=== PATIENT | male | born 1960 | race Caucasian/White ===

== ENCOUNTER 2020-10-09 05:03 | Observation (INO) ==
--- NOTE | 2020-09-12 14:23 | PAT Medication Instructions ---
Medication Instructions Date of Service September 12, 2020 Home Medications Medication Instructions Recorded Wheelrticia Walker #1 ea 09/08/20 naproxen sodium [Aleve] 440 mg PO Q8H PRN ASK your surgeon for instructions naproxen sodium [Aleve] 440 mg PO Q8H PRN OTHERWISE NOTHING TO EAT OR DRINK AFTER MIDNIGHT Other Notes If you have any questions please call us at [phone] or [phone] or [phone] or [phone]
--- NOTE | 2020-09-15 09:15 | Anesthesiology Consultation ---
Date of Service September 15, 2020 Assessment & Plan (1) Encounter for pre-operative examination: COVID Status: As of 09/15 assessment, patient denies travel to endemic area, known exposure/sick contacts, or symptoms of COVID19. Patient instructed that they and their household members must follow strict social distancing guidelines, wear a mask in public and avoid travel/events/gatherings for 14 days prior to surgery. Preoperative COVID19 testing to be completed prior to surgery per surgeon's arrangements. Patient made aware to self-isolate as much as possible between COVID testing and surgery. Chart Review Chart Review: Acceptable Risk for Surgery and Patient seen in Pre Admission Testing Teaching & Discussion Instructed NPO after midnight before surgery, except medications with 15 cc of water. Medication instructions provided according to the PAT guidelines. History Surgery Operation Date: 10/09/20 08:15 Proposed Procedures p Left Total Knee Replacement - Sean Palmer MD Height/Weight Height: 5 ft 11 in Weight: 101.7 kg Allergies Allergy/AdvReac Type Severity Reaction Status Date / Time No Known Allergies Allergy Verified 09/10/20 09:39 Medications Home Medications Medication Instructions Recorded Confirmed Last Taken Wheeled Walker #1 ea 09/08/20 09/08/20 Unknown naproxen sodium [Aleve] 440 mg PO Q8H PRN 09/10/20 09/10/20 Unknown Past Medical History Medical History Arthritis Hyperlipidemia NO MEDS Hypertension NO MEDS Exercise / Class Metabolic Activity II 4-5 Yardwork/Stairs/Walk up hill (Denies CP with 1 FOS, very mildly SOB, does stairs at home) Past Family History Family History Family/Other Family history of diabetes mellitus COUSIN Past Surgical History Surgical History History of hand surgery GANGLION-BLOCK ANESTHESIA, WAS NOT SEDATED Past Anesthesia History No Hx of Anesthesia Complications and No Family Hx of Anesthesia Complications History of PONV No Hx of PONV and No Hx of Motion Sickness Social History Smoking Status: Current every day smoker Smoking cigarettes per day: 10 CIGS A DAY Do You Dip or Chew Tobacco: No Hx Alcohol Use: No Hx Substance Use: No Review of Systems Pt denies any recent chest pain, shortness of breath, palpitations, cough, fever, URI, or uncontrolled acid reflux. Physical Exam Vital Signs BP: 143/74 P: 71bpm SPO2: 98% RA T: 98.5 F R: 16 ENMT Mouth: no dental restorations, no chipped teeth and no loose teeth Thyromental Distance: > or= 3.5 Finger Breadths Mallampati Class: II Neck + short neck and + facial hair (short goatee); neck extension not limited Respiratory normal respiratory effort, lungs clear to auscultation + prolonged expiratory phase Cardiovascular RRR, no murmur, no edema Vessels: no carotid bruit Testing Laboratory Results 09/15/20 09:28 09/15/20 09:28 PT 10.7 Seconds (9.0-12.0) 09/15/20 09: INR 1.0 (0.9-1.1) 09/15/20 09:28 APTT 28.4 Seconds (21.0-31.0) 09/15/20 09:28 Blood Type A Positive 09/15/20 09:28 Antibody Screen NEGATIVE 09/15/20 09:28 Electrocardiogram Date: 09/15/20 Sinus rhythm at 73 bpm with occasional PVCs. Chest X-Ray Date: 09/15/20 Findings: + NAD
--- NOTE | 2020-09-15 10:06 | XRay Report ---
XR chest Pre-admission PA/Lat HISTORY: 60 years-old Male pat preoperative exam. No acute chest complaints COMPARISON: None TECHNIQUE: PA and lateral views of the chest FINDINGS: Cardiomediastinal and hilar silhouettes are within normal limits. There is no pneumothorax, pleural e ffusion, airspace consolidation or overt pulmonary edema. Bones of the chest appear grossly intact. D egenerative changes of the shoulders and spine. IMPRESSION: No acute process. ACT 112: Negative or not required by law. The above report was generated using voice recognition software. It may contain grammatical, syntax o r spelling errors. Electronically signed by: Sam Chavez M.D. 09/15/2020 10:04 AM
--- NOTE | 2020-09-15 10:24 | Electrocardiogram Report ---
Test Reason : Blood Pressure : / mmHG Vent. Rate : 073 BPM Atrial Rate : 073 BPM P-R Int : 158 ms QRS Dur : 108 ms QT Int : 392 ms P-R-T Axes : 058 -17 060 degrees QTc Int : 431 ms Sinus rhythm with occasional Premature ventricular complexes Otherwise normal ECG No previous ECGs available Confirmed by Roly Vargas ([id number]) on 09/15/2020 10:23:48 AM Referred By: Sena Palmer Confirmed By:Roly Vargas
[2020-09-15 11:09] LABS: Basophils # (auto) 0.02 K/uL (0-0.2); Basophils % (auto) 0.3 %; Eosinophils # (auto) 0.16 K/uL (0-0.5); Eosinophils % (auto) 2.2 %; Hematocrit (blood only) 47.5 % (42-52); Hemoglobin 16.6 g/dL (14.0-18.0); Immature Granulocytes # (auto) 0.02 K/uL (0.00-0.02); Immature Granulocytes % (auto) 0.3 %; Lymphocytes # (auto) 2.11 K/uL (1.2-3.4); Lymphocytes % (auto) 28.9 %; Mean Corpuscular Hemoglobin 31.7 pg (25-34); Mean Corpuscular Hgb Conc 34.9 g/dL (32-36); Mean Corpuscular Volume 90.6 fL (80-100); Mean Platelet Volume 11.1 fL (7.4-10.4); Monocytes # (auto) 0.49 K/uL (0.11-0.59); Monocytes % (auto) 6.7 %; Neutrophils % (auto) 61.6 %; Platelet Count 154 K/uL (130-400); RDW Coefficient of Variation 12.4 % (11.5-14.5); RDW Standard Deviation 41.3 fL (36.4-46.3); Red Blood Count 5.24 M/uL (4.7-6.1)
[2020-09-15 11:16] LABS: BUN Creatinine Ratio 10.6 (10-20); Calcium 8.8 mg/dl (8.5-10.1); Creatinine Clr Calc Pharmacy 103.5 ml/min; Est GFR (African American) 105.1; Est GFR (Non-African American) 90.6; Potassium 3.9 mmol/L (3.5-5.1)
[2020-09-15 11:26] LABS: Partial Thromboplastin Time 28.4 Seconds (21.0-31.0); Prothrombin Time 10.7 Seconds (9.0-12.0)
--- NOTE | 2020-10-02 13:07 | History and Physical Report ---
DATE OF ADMISSION: 10/09/2020 CHIEF COMPLAINT: Left knee pain and discomfort. HISTORY OF PRESENT ILLNESS: A 60-year-old fairly active gentleman who presents with a several year history of gradually progressive increased left knee pain and discomfort. He saw Dr. Colbert over in [place] and had a shot in his knee, which helped him for about 6 weeks. The pain has returned. He has a limited walking tolerance due to the pain. It is mostly medial, but some lateral pain. It swells more as the day goes on. He limps more as the day goes on. He has difficulty going up and down steps. He has been through some physical therapy with no improvement. He would like to have his knee fixed. Of note, the patient does have a history of a knee injury when he was in high school consistent with a likely ACL tear. PAST MEDICAL HISTORY: Significant for sleep apnea. PREVIOUS SURGERIES: None. ALLERGIES: None. CURRENT MEDICATIONS: Include various anti-inflammatory medicines. SOCIAL HISTORY: Significant for a 60-year-old male. He is from [place]. 30-[id number]-bgly history of smoking. No alcohol intake. He lives with his son and daughter. FAMILY HISTORY: Noncontributory. REVIEW OF SYSTEMS: Negative for diabetes, neurologic problem, vascular problem, bleeding disorders. Denies any chest pain or shortness of breath. No history of DVT or PE. No known bleeding problems. PHYSICAL EXAMINATION: GENERAL: Shows a pleasant, middle-aged male, looks to be in good health. HEENT: Benign. NECK: Supple, no lymphadenopathy. LUNGS: Clear to auscultation. HEART: Has a regular rate and rhythm. ABDOMEN: Soft, nontender, nondistended. EXTREMITIES: Grossly neurovascularly intact except as follows: Examination of the left knee reveals the patient ambulates with varus alignment to his knee. He does have a bit of a varus thrust with weightbearing. Small knee effusion. He is tender over the medial joint line. Range of motion 5-125. He has got a soft endpoint to his Maria Dolores. No obvious pivot. No pain with hip motion. X-RAYS: X-rays of the left knee were reviewed. It shows advanced left knee medial compartment DJD. He has got near complete loss of his joint space. He has got subchondral sclerosis. He has got osteophytes off the medial femoral condyle and medial tibial plateau. There is a small segment of avascular necrosis as well. ASSESSMENT: A 60-year-old male with a history of a left knee injury and likely anterior cruciate ligament tear in high school with a progressive knee pain consistent with advanced medial compartment arthritis. He has failed conservative treatment and would like to have his left knee replaced. He is not a good candidate for partial knee replacement due to his anterior cruciate ligament deficiency. PLAN: We are going to proceed with left knee replacement. The risks and benefits of this procedure were explained to the patient including but not limited to DVT, PE, , infection, neurological injury, vascular injury, bleeding problem, pain, limited range of motion, stiffness, failure to relieve his symptoms, incomplete relief of symptoms, need for further surgery in the future, fracture, leg length inequality, nerve palsy, etc. The patient understands and desires to proceed. Informed consent was obtained. As far as discharge plans, he is planning to be discharged to home with [facility]. He lives with his son and daughter who can assist in his care. We will likely need to put a patch on him in the hospital due to his smoking history.
[2020-10-09] MEDS ORDERED: LR 60ML/HR IV SCH (06:00)
[2020-10-09] MEDS ORDERED: BUPIVACAINE LIPOSOME/PF 266 MG, BUPIVACAINE/EPINEPHRINE 50 ML, SODIUM CHLORIDE 0.9% 30 ... INFIL SCH (06:00)
[2020-10-09] MEDS ORDERED: METOCLOPRAMIDE HCL 10 MG TABLET PO SCH (06:00)
[2020-10-09] MEDS ORDERED: ceFAZolin 2000MG 2,000 MG/15 ML SYR IV SCH (06:00)
[2020-10-09] MEDS ORDERED: LR 500ML BOLUS, THEN 15ML/HR IV SCH (06:00)
[2020-10-09] MEDS ORDERED: TRANEXAMIC ACID 1,000 MG **IV Intra-op IV SCH (06:00)
[2020-10-09] MEDS ORDERED: ACETAMINOPHEN 500 MG TAB PO SCH (06:00)
[2020-10-09] MEDS ORDERED: GABAPENTIN 600 MG DOSE PO SCH (06:00)
[2020-10-09] MEDS ORDERED: FAMOTIDINE 20 MG TAB PO SCH (06:00)
[2020-10-09] MEDS ORDERED: TRANEXAMIC ACID 1,000 MG **IV Pre-op IV SCH (06:00)
[2020-10-09] MEDS ORDERED: BUPIVACAINE 0.5 % 5 MG/1 ML PF 10ML VIAL ONE (06:35)
--- NOTE | 2020-10-09 07:00 | History & Physical Bridge Note ---
Date of Service October 09, 2020 History & Physical Bridge Note I have examined the patient, reviewed the History & Physical and in the interval since the performance of the History & Physical I have noted the following changes of clinical significance: no changes noted
[2020-10-09] MEDS ORDERED: LIDOCAINE HCL 2% 2 ML VIAL/AMP(20MG/ML) INFIL ONE (07:03)
[2020-10-09] MEDS ORDERED: MIDAZOLAM HCL 1 MG/ML 2ML VIAL ONE (07:03)
[2020-10-09] MEDS ORDERED: fentaNYL citrate 100 MCG/2 ML VIAL ONE (07:03)
[2020-10-09] MEDS ORDERED: PROPOFOL IV EMULSION 10 MG/ML 20 ML VIAL IV ONE (07:03)
[2020-10-09] MEDS ORDERED: fentaNYL citrate 100 MCG/2 ML VIAL IV PRN (07:07)
[2020-10-09] MEDS ORDERED: ePHEDrine sulfate 50 MG/ML AMP IV PRN (07:07)
[2020-10-09] MEDS ORDERED: ATROPINE SULFATE 0.1 MG/ML 10ML SYR IV PRN (07:07)
[2020-10-09] MEDS ORDERED: ONDANSETRON INJ 2 MG/ML 2 ML VIAL IV PRN ×2 (07:07→10:13)
[2020-10-09] MEDS ORDERED: SODIUM CHLORIDE 0.9% PF 50 ML VIAL ONE (07:12)
[2020-10-09] MEDS ORDERED: BUPIVACAINE LIPOSOME 1.3% 266 MG/20 ML VIAL ONE (07:12)
[2020-10-09] MEDS ORDERED: BACITRACIN INJ 50,000 UNIT VIAL ONE (07:12)
[2020-10-09] MEDS ORDERED: BUPIVACAINE 0.25% 30 ML VIAL ONE (07:12)
[2020-10-09] MEDS ORDERED: EPINEPHrine INJ 1 MG/ML AMP ONE (07:13)
[2020-10-09] MEDS ORDERED: ONDANSETRON INJ 2 MG/ML 2 ML VIAL ONE (07:52)
[2020-10-09] MEDS ORDERED: DEXAMETHASONE SOD INJ 4 MG/ML VIAL ONE (07:52)
--- NOTE | 2020-10-09 09:09 | Post Operative Brief Note ---
PG Immediate Post Op with CF Date of Surgery October 09, 2020 Pre & Post Diagnosis Operation Date: 10/09/20 07:30 Pre-Op Diagnosis: Left Knee Advanced Degenerative Joint Disease Post-Op Diagnosis: Left Knee Advanced Degenerative Joint Disease I identified the patient and participated in the time-out.: Yes Procedure Operation Date: 10/09/20 07:30 Actual Procedures p Left Total Knee Arthroplasty(Left) - Sean Palmer MD Surgeon Sean Palmer MD Senior Industrial Engineer ASA Jackson Estimated Blood Loss 50 Findings Consistent with Post-Op Diagnosis Fluids 1200 cc Specimens Specimen Description: A. Left Knee Bone and Tissue Drains Tomlinson Catheter Anesthesia Type Spinal MAC Complications none Disposition Accompanied Patient To Recovery: No Disposition: Recovery Room
--- NOTE | 2020-10-09 09:23 | Operative Report ---
Post Operative Report Pre & Post Diagnosis Operation Date: 10/09/20 07:30 Pre-Op Diagnosis: Left Knee Advanced Degenerative Joint Disease Post-Op Diagnosis: Left Knee Advanced Degenerative Joint Disease I identified the patient and participated in the time-out.: Yes Procedure Operation Date: 10/09/20 07:30 Actual Procedures p Left Total Knee Arthroplasty(Left) - Sean Palmer MD Surgeon Sean Palmer MD Instructor Of Nursing ASA Jackson Estimated Blood Loss 50 Findings Consistent with Post-Op Diagnosis Fluids 1200 cc. Specimens Left knee sent for pathology. Anesthesia Type Spinal MAC Complications none Disposition Accompanied Patient To Recovery: No Disposition: Recovery Room Indications Patient is a 60-year-old gentleman is had a long history of a left knee problems and pain and discomfort. She has been through extensive conservative treatment primarily provided [place]. Provide some temporary relief only. He is symptoms localized to his knee joint. He was having difficulty maintaining any degree of active lifestyle. X-rays show medial compartment DJD. He elected proceed with surgical treatment. Description of Procedure Operative implants consist of: 1. Biomet Vanguard size 70 left posterior stabilized femoral component. 2. Biomet size 75 tibial tray. 3. 10 mm posterior stabilized polyethylene insert. 4. 31 x 8 all polypatella. The patient was taken to the operating identified and placed on the operating table supine position but all contact areas were properly padded. IV antibiotics tried by anesthesia team. Spinal anesthetic and abductor canal block had been provided in the holding area. A Tomlinson catheter was placed in sterile fashion for the left thigh turn was then placed in the left lower extremities and prepped draped in usual sterile fashion. The left leg was elevated exsanguinated with use of an Esmarch and turns placed at 300 mmHg. An anterior approach of the left knee was then performed to longitudinal incision centered over the patella. Sharp dissection got through subcutaneous tissue down the extensor mechanism. Medial parapatellar arthrotomy incision was made. Some subperiosteal dissection was carried out medially. The fat pad was dissected from each patella tendon. Lateral patellofemoral ligament was released. Patella was subluxated laterally and the knee was flexed. The osteophytes were taken off the distal femur. The ACL and PCL were then released from the distal femur and the tibia subluxated anteriorly. The external tibial alignment jig was then placed in the interface the tibia and adjusted 14 mm medially. Proximal tibial cut was made to move out a millimeter or 2 of bone from most efficient aspect medial till plateau. Some osteophytes taken off medial and posterior medially. Tibia sized to a size 79. Attention drawn the femur. The distal femur stem with a sharp drop with intramedullary canal was suction. A left 6 degree valgus cutting guide was placed but distal femoral cutting block was pinned in place. Distal femoral cut was made to take an additional 3 mm of bone off distal femur. The femur was then sized to a size 70. We did downsize this slightly. The AP cutting block was pinned parallel to the epicondylar axis which was 6 degrees of external rotation. The anterior cut, anterior chamfer, p osterior cut, posterior chamfer cuts were made. Box cutting guide was placed in just slight lateral box cut was made. The knee was flexed. The remnants of the medial lateral menisci were excised. The osteophytes were taken off the posterior aspect the femur. A trial femoral component was placed. The tibial tray was pinned in maximum external rotation and the drill and stem punch were used to create defect in proximal to for the tibial tray. The knee was then trialed the 10 mm insert fit most appropriately. Attention drawn the patella. The patella was cleaned of all soft tissues. Patella thickness measured 24 mm in thickness and cut down to 14. Was sized to a size 31 patella. Locals were drilled for 31 patella. The lateral osteophyte is moved. Patella button was placed. Knee was taken through range of motion and the patella tracked nicely with no thumbs test. Attention drawn to placing the permanent components. All trial components were removed. A bone plug was placed in the distal femur limit blood loss put a double batch [place] G cement was mixed. A Biomet Vanguard size 70 left posterior stabilized femoral component, size 79 tibial tray, 10 mm posterior bite polyethylene insert, and a 31 x 8 all polypatella then cemented in place. Knee was brought out to full extension total cement hardened. Final cement check was then performed. The pericapsular tissues were injected with total 100 cc of combination of 20 of Exparel, 30 cc normal saline, 50 cc of quarter percent Marcaine with epinephrine. Patient did receive 1 g tranexamic acid. The tourniquet was then let down for final turn time 56 minutes. Hemostasis assured use electrocautery. The wound was then once again irrigated. The extensor mechanism closed with combination 1 PDS suture #1 Vicryl suture in [id number] fashion for the extensor mechanism checked found to be intact with subcutaneous tissue then closed with 2 Dexon suture in a buried interrupted fashion skin was closed skin ranulfo. Leg was then cleaned dried a sterile dressed composed Xeroform, 4 x 4's, sterile cast padding, Michael bandage were applied. Patient then transferred to the recovery room in stable condition. Patient tolerated procedure well and there were no complications. Stevie Jackson, my physician orthopaedic physician assistant, was present for the entire procedure. His assistance was essential and required for appropriate patient positioning, prepping and draping, surgical exposure, performing the technical details of the operation, placement the implants, closure of the wound, and placement of the sterile bandage. I attest to the content of the Intraoperative Record and any orders documented therein. Any exceptions are noted below.
--- NOTE | 2020-10-09 09:33 | XRay Report ---
LEFT KNEE 2 VIEWS History: Left total knee arthroplasty. Degenerative arthritis. Postop. FINDINGS: The patient is status post a left total knee arthroplasty. The hardware is intact. No fract ure or dislocation. Skin ranulfo are in place. IMPRESSION: Left total knee arthroplasty. No evidence for hardware complication. ACT 112: Negative or not required by law. Electronically signed by: Merrill Snyder M.D. 10/09/2020 9:31 AM
--- NOTE | 2020-10-09 09:44 | Anesthesiology Progress Note ---
Date of Service October 09, 2020 Anesthesia Post Procedure Vital Signs Vital Signs: Temp Pulse Pulse Resp BP BP Pulse Ox 10/09/20 09:30 72 19 112/63 95 10/09/20 09:20 80 14 108/64 94 10/09/20 09:13 98.2 F 83 14 129/71 96 10/09/20 05:20 98.1 F 82 18 151/81 H 97 Transfer of Care Handoff Completed per policy Notes Mental Status: alert / awake / arousable and participated in evaluation Patient Amnestic to Procedure: Yes Nausea / Vomiting: adequately controlled Pain: adequately controlled Airway Patency, RR, SpO2: stable & adequate BP & HR: stable & adequate Hydration State: stable & adequate Neuraxial Anesthesia: was administered and sensory block is resolving Anesthetic Complications: no major complications apparent and Pt Satisfied with anesthetic care
[2020-10-09] MEDS ORDERED: TAMSULOSIN HCL 0.4 MG CAP PO PRN (10:13)
[2020-10-09] MEDS ORDERED: diphenhydrAMINE Capsule 25 MG CAP PO PRN (10:13)
[2020-10-09] MEDS ORDERED: ALUMINUM/MAGNESIUM SUSP 30 ML UDC PO PRN (10:13)
[2020-10-09] MEDS ORDERED: METOCLOPRAMIDE HCL INJ 5 MG/ML 2 ML VIAL IV PRN (10:13)
[2020-10-09] MEDS ORDERED: HYDROmorphone INJ 0.5 MG/0.5 ML SYR IV PRN (10:13)
[2020-10-09] MEDS ORDERED: bisacodyL 10 MG SUPP PR PRN (10:13)
[2020-10-09] MEDS ORDERED: MAGNESIUM HYDROXIDE SUSP 30 ML UDC PO PRN (10:13)
[2020-10-09] MEDS ORDERED: oxyCODONE HCL IR 5 MG TAB (IMMEDIATE RELEASE) PO PRN (10:13)
[2020-10-09] MEDS ORDERED: NALOXONE HCL 0.4 MG/1 ML VIAL/CARP IV PRN (10:13)
[2020-10-09] MEDS: SODIUM CHLORIDE 0.9% 1000ML 1,000 ML IV SCH ×2 (10:26→20:03)
[2020-10-09] MEDS: KETOROLAC 30 MG/ML VIAL IV SCH ×3 (11:07→23:55)
[2020-10-09] MEDS: ACETAMINOPHEN 500 MG TAB PO SCH ×2 (12:50→21:24)
[2020-10-09] MEDS ORDERED: TRANEXAMIC ACID / 0.7% NACL 1,000 MG/100 ML BAG IV SCH (16:00)
[2020-10-09] MEDS: Scopolamine CHECK PATCH PLACEMENT SCH ×2 (16:53→23:56)
[2020-10-09] MEDS: ceFAZolin 2000MG 2,000 MG/15 ML SYR IV SCH ×2 (17:26→23:56)
[2020-10-09] MEDS: ASCORBIC ACID 500 MG TAB PO SCH (17:27)
[2020-10-09] MEDS: FERROUS GLUCONATE 324 MG TAB PO SCH (17:27)
--- NOTE | 2020-10-09 18:05 | Progress Notes ---
DATE: 10/09/2020 SUBJECTIVE: A 60-year-old gentleman postop from a left knee replacement. He is doing well. Not really having any pain yet. Just starting to be able to wiggle his toes. No chest pain or shortness of breath. Not feeling dizzy or lightheaded. OBJECTIVE: VITAL SIGNS: Temperature 37.1. Vital signs stable. GENERAL: Shows a pleasant, middle-aged male. He is sitting up in bed, looks pretty comfortable. LUNGS: Clear to auscultation. HEART: Regular rate and rhythm. ABDOMEN: Soft, nontender, nondistended. EXTREMITIES: Grossly neurovascularly intact except as follows: Examination of the left leg reveals the leg to be well aligned. He is able to just slightly bend his toes. His extension is a bit weak as well. He does have brisk refill with good distal pulse. X-RAYS: X-rays of the left knee from recovery room are reviewed. It shows a cemented posterior stabilized total knee arthroplasty. Components looked to be in good position. No signs of problems. ASSESSMENT: A 60-year-old gentleman postoperative from a left knee replacement, doing pretty well. It appears the block is still in effect. It is just wearing off. PLAN: 1. DVT prophylaxis including thigh-high TEDs, SCDs, and aspirin twice a day. 2. PT/OT. Weight bear as tolerated. Left total knee protocol. 3. Pain control. We will have to adjust his pain medicine as the block wears off. 4. Disposition: He is planning to be discharged to home with some home health and his family's assistance once medically stable.
[2020-10-09] MEDS: DOCUSATE SODIUM 100 MG CAP PO SCH (20:04)
[2020-10-09] MEDS: ASPIRIN 81 MG ECTAB PO SCH (20:04)
[2020-10-09] MEDS: TAPENTADOL HCL ER 50 MG TABCR PO SCH (20:05)
[2020-10-09] MEDS ORDERED: SENNA 8.6 MG TAB PO SCH (21:00)
[2020-10-10] MEDS: KETOROLAC 30 MG/ML VIAL IV SCH (05:44)
[2020-10-10] MEDS: ACETAMINOPHEN 500 MG TAB PO SCH (05:45)
[2020-10-10 06:10] LABS: Hematocrit (blood only) 37.6 % (42-52); Mean Corpuscular Hemoglobin 31.3 pg (25-34); Mean Corpuscular Hgb Conc 34.6 g/dL (32-36); Mean Corpuscular Volume 90.4 fL (80-100); Mean Platelet Volume 11.4 fL (7.4-10.4); Platelet Count 137 K/uL (130-400); RDW Coefficient of Variation 12.4 % (11.5-14.5); Red Blood Count 4.16 M/uL (4.7-6.1); White Blood Count 11.64 K/uL (4.8-10.8)
[2020-10-10 06:39] LABS: Calcium 8.1 mg/dl (8.5-10.1); Creatinine Clr Calc Pharmacy 109.3 ml/min; Est GFR (African American) 110.6; Est GFR (Non-African American) 95.4; Potassium 3.7 mmol/L (3.5-5.1)
[2020-10-10] MEDS: SODIUM CHLORIDE 0.9% 1000ML 1,000 ML IV SCH (07:07)
[2020-10-10] MEDS ORDERED: dexAMETHasone 4 MG TAB PO SCH (08:00)
[2020-10-10] MEDS: ASCORBIC ACID 500 MG TAB PO SCH (08:01)
[2020-10-10] MEDS: ASPIRIN 81 MG ECTAB PO SCH (08:01)
[2020-10-10] MEDS: TAPENTADOL HCL ER 50 MG TABCR PO SCH (08:01)
[2020-10-10] MEDS: DOCUSATE SODIUM 100 MG CAP PO SCH (08:01)
[2020-10-10] MEDS: Scopolamine CHECK PATCH PLACEMENT SCH (08:02)
[2020-10-10] MEDS: FERROUS GLUCONATE 324 MG TAB PO SCH (08:02)
[2020-10-10] MEDS ORDERED: MULTIVITAMIN TAB PO SCH (09:00)
[2020-10-10] MEDS ORDERED: NICOTINE 14 MG/24 HR PATCH TD SCH (09:00)
--- NOTE | 2020-10-10 09:06 | Anesthesiology Progress Note ---
Date of Service October 10, 2020 Anesthesia Post Procedure Vital Signs Vital Signs: Temp Pulse Pulse Resp BP BP Pulse Ox 10/10/20 07:24 36.6 C 69 18 122/67 96 10/10/20 03:26 36.7 C 87 16 136/74 94 10/09/20 23:41 36.8 C 78 16 126/69 97 10/09/20 19:03 37.3 C 66 16 114/68 92 10/09/20 15:19 37.1 C 82 16 128/66 94 10/09/20 12:45 36.7 C 80 18 123/73 94 10/09/20 12:06 37 C 85 18 123/72 97 10/09/20 10:59 37.1 C 75 18 134/72 96 10/09/20 10:30 73 18 128/66 95 10/09/20 10:00 36.7 C 81 18 125/76 95 10/09/20 09:50 84 19 115/67 96 10/09/20 09:40 36.7 C 79 15 122/57 L 94 10/09/20 09:30 72 19 112/63 95 10/09/20 09:20 80 14 108/64 94 10/09/20 09:13 36.8 C 83 14 129/71 96 Pain Intensity Left Leg: Pain Intensity: 0 Transfer of Care Handoff Completed per policy Notes Mental Status: alert / awake / arousable Patient Amnestic to Procedure: Yes Nausea / Vomiting: adequately controlled Pain: adequately controlled Airway Patency, RR, SpO2: stable & adequate BP & HR: stable & adequate Hydration State: stable & adequate Neuraxial Anesthesia: was administered Anesthetic Complications: no major complications apparent and Pt Satisfied with anesthetic care
--- NOTE | 2020-10-10 10:46 | Progress Notes ---
DATE: 10/10/2020 SUBJECTIVE: A 60-year-old gentleman postop day 1 from left knee replacement. He is doing quite well. Really not having much pain at all. He is anxious to try and get home. No chest pain or shortness of breath. Not feeling dizzy or lightheaded. OBJECTIVE: VITAL SIGNS: Temperature 36.6. Vital signs stable. GENERAL: Shows a pleasant, middle-aged male. He is lying in bed, looks pretty comfortable. EXTREMITIES: Examination of the left leg reveals the leg to be well aligned. He can dorsiflex and plantarflex his foot appropriately. He has got brisk refill, good distal pulse. LABORATORY DATA: Hemoglobin 13.0. Hematocrit 37.6. Electrolytes are stable. ASSESSMENT: A 60-year-old gentleman postoperative day 1 from left knee replacement, doing pretty well. His pain is controlled. He is anxious to try and get home. PLAN: 1. DVT prophylaxis including thigh-high TEDs, SCDs, and aspirin twice a day. 2. PT/OT. Weight bear as tolerated. Left total knee protocol. 3. Pain control, doing well with current pain regimen. 4. Disposition: Plan to discharge to home with some home health later today if he does okay in therapy and his pain is controlled.
--- NOTE | 2020-10-14 09:30 | Discharge Summary ---
Date of Service October 14, 2020 Admission HPI Per Admitting Provider Documented in the H & P Admission Exam (Per Admitting) Constitutional Documented in the H & P Discharge Data Consultations 10/09/20 10:13 Consult Case Management - Discharge Planning Routine Procedures Performed Operation Date: 10/09/20 07:30 Actual Procedures p Left Total Knee Arthroplasty(Left) - Sean Palmer MD Hospital Course (1) Status post total left knee replacement: This patient is a 60 year old male admitted on 10/09/20 and underwent total knee arthroplasty. He tolerated the procedure well and there were no complications. Transferred to the PACU post op and later to the orthopedic floor for further care. He was given ancef for antibiotic prophylaxis. He was also gi jc ALBER stockings, SCDs, and aspirin for DVT prophylaxis. Hemoglobin, hematocrit, and vital signs were monitored during his hospital stay and remained stable. Did not require any blood transfusions. There were no complications during his hospital stay. By post op day #1 the patient was tolerating a regular diet, pain was reasonably controlled with oral pain medicine, and he was participating in physical therapy. On post op day #1 the patient was discharged home and set up with home health care. He was given printed discharge instructions including prescriptions for extra strength tylenol, aspirin, and oxycodone. Continue physical therapy, weight bearing as tolerated. Continue ALBER stockings. Follow up approximately 2 weeks post op or sooner if there are problems or concerns. Coding Level of Care Code None Diagnoses Status post total left knee replacement Z96.652
== END 2020-10-10 12:14 | disposition home health service (06) ==
LOC: ASU 05:03 → 3E 05:03